=== PATIENT | male | born 1945 | race Caucasian/White ===

== ENCOUNTER → 2018-05-17 | Outpatient (CLI) | payer MEDICARE ==
--- NOTE | 2018-05-17 14:48 | CT ---
EXAMINATION TYPE: CT chest wo con DATE OF EXAM: 05/17/2018 COMPARISON: NONE HISTORY: SOB and cough, recently quit smoking CT DLP: 273.2 mGycm. Automated Exposure Control for Dose Reduction was Utilized. TECHNIQUE: CT scan of the thorax is performed without IV contrast. FINDINGS: LUNGS: Moderate underlying emphysematous changes felt present. There are some faint reticulonodular o pacities in bilateral lower lobes most prominent inferiorly and medially. No suspicious focal consoli dation is seen. No concerning noncalcified parenchymal nodules or masses are clearly identified. Ther e is 4 mm calcified nodule or granuloma superior lateral left lower lobe axial image 31. No pleural e ffusion or pneumothorax is seen. Tracheobronchial tree is patent. MEDIASTINUM: Lack of IV contrast is noted to limit evaluation for mediastinal and especially hilar ad enopathy. There are no definitive greater than 1 cm hilar or mediastinal lymph nodes. No cardiomega ly or pericardial effusion is seen. Coronary artery calcification is present which is noted marker fo r coronary artery disease. OTHER: There is 1.2 cm simple appearing thin-walled cyst posterior right hepatic lobe axial image 71. Spleen is mildly enlarged at 14.1 cm long axis axial image 62 IMPRESSION: Moderate emphysematous change with faint reticular nodular opacities in bilateral lower l obes, cannot exclude atypical acute infectious process. Correlate clinically. No suspicious nodules o r adenopathy identified.
== END | disposition home or self-care (01) ==
LOC: RADCTMAIN 14:09
PROVIDERS: ATTEND Family Medicine
DX: J43.9 Emphysema, unspecified (principal); R91.8 Other nonspecific abnormal finding of lung field
CPT/HCPCS: 71250